=== PATIENT | female | born 1980 | race Asian ===

== ENCOUNTER 2024-07-12 06:21 | Day surgery (SDC) | payer OTHER, SELFPAY ==
[2024-07-05 13:38] VITALS: BMI 24.0
[2024-07-05 14:29] LABS: % Basophils 0.4 % (0-2); % Eosinophils 2.1 % (0-6); % Immature Granulocytes 0.3 % (0-0.5); % Lymphocytes 32.1 % (20.5-51.1); % Monocytes 7.4 % (1.7-9.3); % Neutrophils 57.7 % (42.2-75.2); Absolute Eosinophils 0.2 10^3/uL (0-0.7); Absolute Lymphocytes 2.3 10^3/uL (1.2-3.4); Absolute Monocytes 0.5 10^3/uL (0.1-0.6); Absolute Neutrophils 4.1 10^3/uL (1.4-6.5); Hemoglobin 12.5 g/dL (12.0-16.0); Mean Corp Hgb Conc. 32.9 g/dL (33.0-37.0); Mean Corpuscular Hgb 27.5 pg (27.0-31.0); Mean Corpuscular Volume 83.7 fL (81.0-99.0); Mean Platelet Volume 9.4 fL (7.4-10.4); Nucleated Red Blood Cells % 0 %; Platelet Count 326 10^3/uL (130-400); Red Blood Cell Count 4.54 10^6/uL (4.20-5.40); White Blood Cell Count 7.1 10^3/uL (4.8-10.8)
[2024-07-05 14:46] LABS: Beta HCG Quantitative < 2.39 mIU/ml
[2024-07-12 09:20] VITALS: BMI 27.2
[2024-07-12 09:25] VITALS: BP 156/94; BMI 27.2
[2024-07-12] MEDS: NORMOSOL-R/PLASMALYTE-A 1000 IV (09:30)
[2024-07-12 10:55] VITALS: BP 145/87
[2024-07-12 11:10] VITALS: BP 138/88
[2024-07-12 11:23] VITALS: BP 143/87
[2024-07-12 11:25] VITALS: BP 143/87
== END 2024-07-12 11:50 | disposition home or self-care (01) ==
LOC: SDS 06:21
PROVIDERS: ATTENDING PHYSICIAN Obstetrics & Gynecology; FAMILY PHYSICIAN Internal Medicine; REFERRING PHYSICIAN Optometrist
DX: N92.4 Excessive bleeding in the premenopausal period (principal); D25.9 Leiomyoma of uterus, unspecified; N72 Inflammatory disease of cervix uteri
CPT/HCPCS: 58558; 88305; 36415; 84702; 85025

== ENCOUNTER → 2024-08-07 17:20 | Outpatient (REF) | payer OTHER, SELFPAY | LOC: WDC 17:20 | PROVIDERS: ATTENDING PHYSICIAN Internal Medicine | DX: Z12.39 Encounter for other screening for malignant neoplasm of breast (principal); Z12.31 Encounter for screening mammogram for malignant neoplasm of breast | CPT/HCPCS: 77063; 77067 ==

== ENCOUNTER → 2025-08-08 11:12 | Outpatient (REF) | payer OTHER, SELFPAY | LOC: WDC 11:12 | PROVIDERS: ATTENDING PHYSICIAN Obstetrics & Gynecology; FAMILY PHYSICIAN Internal Medicine | DX: Z12.31 Encounter for screening mammogram for malignant neoplasm of breast (principal) | CPT/HCPCS: 77063; 77067 ==

== ENCOUNTER → 2025-10-11 07:58 | Outpatient (REF) | payer OTHER, SELFPAY | LOC: RCS 07:58 | PROVIDERS: ATTENDING PHYSICIAN Internal Medicine | DX: R01.1 Cardiac murmur, unspecified (principal) | CPT/HCPCS: 93306 ==